=== PATIENT | male | born 1955 | race Caucasian/White ===

== ENCOUNTER → 2020-10-16 09:09 | Outpatient (BNVA) | payer MEDICARE, SELFPAY | PROVIDERS: PCP Internal Medicine; Visit Provider Surgery | DX: K64.8 Other hemorrhoids (principal) | CPT/HCPCS: 46600; 99202 ==

== ENCOUNTER 2020-10-27 07:03 | Day surgery (SDC) | payer MEDICARE, SELFPAY ==
[2020-10-23 11:58] VITALS: BMI 29.0
--- NOTE | 2020-10-23 14:35 | HO.ANESPROP2 ---
Documented by User: Sofia Chang 10/23/20 14:38 HPI - Anesthesia Eval Consult details Narrative: 64yo M for EUA, Hemorrhoidectomy PMFSH Active Problems Active Problems: All Active Problems (Updated 10/23/20 @ 12:34 by Aleisha Khoury) Internal and external prolapsed hemorrhoids (Acute) Anxiety (Acute) Past Medical History Medical History Anxiety Depression Hx of aortic aneurysm Internal and external prolapsed hemorrhoids Surgical History Surgical History H/O colonoscopy Hx of hemorrhoidectomy Social History Social History Smoking Status: Former smoker Use of substances other than those prescribed or required for medical reasons: No Have you been hit, kicked, punched, or otherwise hurt by someone within the past year? If so, by whom?: No Advance Directives Information Provided: No Meds Allergies Allergy/AdvReac Type Severity Reaction Status Date / Time Sulfa (Sulfonamide Allergy Mild RASH Verified 10/16/20 09:17 Antibiotics) [SULFA (SULFONAMIDE ANTIBIOTICS)] Home Medications Medication Instructions Recorded Confirmed Last Taken Type clonazepam 0.5 mg tablet 0.25 mg PO TID 10/16/20 10/23/20 Unknown History divalproex 250 mg tablet,extended 750 mg PO BEDTIME 10/16/20 10/23/20 Unknown History release 24 hr polyethylene glycol 3350 17 gram 17 g PO DAILY 10/16/20 10/23/20 Unknown History oral powder packet Exam Exam Date and Time: October 23, 2020 1435 Height,Weight and Vital Signs: Height 5 ft 7 in Weight 83.915 kg Narrative Narrative: Chest CT 03/2020 Unchanged mild dilation of the ascending thoracic aorta measuring up to 4.3cm ECHO 03/2020 LV mildly dilated; LV wall thickness is normal; LV systolic function is mildly reduced LVEF 50-55% Mild global hypokinesis of LV No obvious WMA Gr 1 DD with impaired LV relaxation Aortic valve is trileaflet AV appears normal Mild AR No Dilation of aortic root (4.2cm) and ascending aorta (4.1cm) Assessment and Plan Assessment Anesthesia Assessment: Chart Reviewed Documented by User: Iliana Mike 10/27/20 08:25 PMFSH Past Medical History Medical History Anxiety Depression Hx of aortic aneurysm Internal and external prolapsed hemorrhoids Family History Family history of problems with anesthesia: No Surgical History Surgical History H/O colonoscopy Hx of hemorrhoidectomy History of Problems with Anesthesia: No Social History Social History Smoking Status: Former smoker Use of substances other than those prescribed or required for medical reasons: No Have you been hit, kicked, punched, or otherwise hurt by someone within the past year? If so, by whom?: No Advance Directives Information Provided: No Meds Allergies Allergy/AdvReac Type Severity Reaction Status Date / Time Sulfa (Sulfonamide Allergy Mild RASH Verified 10/16/20 09:17 Antibiotics) [SULFA (SULFONAMIDE ANTIBIOTICS)] Home Medications Medication Instructions Recorded Confirmed Last Taken Type clonazepam 0.5 mg tablet 0.25 mg PO TID 10/16/20 10/23/20 Unknown History divalproex 250 mg tablet,extended 750 mg PO BEDTIME 10/16/20 10/23/20 Unknown History release 24 hr polyethylene glycol 3350 17 gram 17 g PO DAILY 10/16/20 10/23/20 Unknown History oral powder packet Exam Height,Weight and Vital Signs: Vital Signs Temp Pulse Resp BP Pulse Ox 10/27/20 08:02 96.1 F L 51 18 118/61 99 Repeat Temp: 98.3 Airway Mallampati Class: II TM Dist: >3cm Neck ROM: Full Loose/Missing/Broken Teeth: No Heart: RRR Lungs: CTAB Assessment and Plan Assessment Anesthesia Assessment: Anesthesia Plan Discussed and Chart Reviewed Final Anesthetic Review NPO: Yes ASA Class: III Final Preanesthetic Review: No Changes in Pt Med Stat, Meds/Allgs Chart Reviewed, Consent Obtained/Reviewed and Anes Risks/Benef Reviewed Patient Risk: Intermediate Procedure Risk: Low Assessment/Block/Sedation in SS: Assess/Block/Sedation-SS Anesthetic Plan Anesthetic Plan: GA and MAC: Disposition: Standard PACU
[2020-10-27] VITALS (12 sets, daily range): BP systolic 118–143; BP diastolic 61–79; PULSE 50–58; RESP 12–18; TEMP 35.6–36.2; O2SAT 93–100
--- NOTE | 2020-10-27 07:51 | MHC.SHP ---
Pre-Procedural Eval Section B Chief Complaint: Internal and external prolapsed hemorrhoids Allergies: Allergies Allergy/AdvReac Type Severity Reaction Status Date / Time Sulfa (Sulfonamide Allergy Mild RASH Verified 10/16/20 09:17 Antibiotics) [SULFA (SULFONAMIDE ANTIBIOTICS)] Plan I have reviewed the history and physical and performed a pertinent physical examination on my patient. No changes have occurred unless specified.
[2020-10-27] MEDS: Lactated Ringers 1,000 ML 100 ML IVCONT (08:13)
--- NOTE | 2020-10-27 08:27 | PC.NURSE ---
TEMPERATURE RECHECK 98.3
--- NOTE | 2020-10-27 09:56 | W.PM.OPN ---
Operative Note Operative Note Date of Service: 10/27/20 Narrative: Preop diagnosis: Internal and external hemorrhoids with pain Postop diagnosis: As above Procedure: Exam under anesthesia, hemorrhoidectomy x2 columns Surgeon: Mac Xiong MD The patient is a 64-year-old male who was had chronic problems of pain and discomfort with his hemorrhoids. He was seen in the office and was noted to have internal and external hemorrhoidal columns on the left and right side. He wanted proceed with hemorrhoidectomy. He understood the technique of the procedure. He was aware of the risks, benefits, and alternatives. He was brought to the operating room and placed in prone shayna-knife position under general anesthesia via endotracheal tube. The buttocks were retracted with wide tape laterally. The perianal area was prepped and draped in the usual sterile fashion. A surgical time-out was done. The patient received Cefotan 2 g IV preoperatively. Examination of the anal orifice revealed a moderate sized external hemorrhoidal column on the left side, and a smaller column on the right. I inserted the Rosey Mccloud retractor into the anal canal and examined the anal canal circumferentially. Again these hemorrhoidal columns were seen and were noted to be of internal and external hemorrhoidal columns. I grasped the hemorrhoidal column on the left side with a Golden grasper and pulled this out into the field. I applied a figure of 8 stitch at the pedicle using chromic 3-0. I made an incision around this hemorrhoid column to the perianal skin using a blade 15. I excised this hemorrhoidal column aboce the plaine of the sphincters along this incision using scissors down to the pedicle. I closed the incision using arunning chromic 3-0 stitch. I proceeded to repeat this procedure on the hemorrhoidal column on the right side. Again this hemorrhoid was grasped with a Golden grasper. I made a [id number] stitch at the pedicle using chromic 3-0.I made an incision on this hemorrhoid column to the perianal skin. I excised this hemorrhoidal column above the plane of the sphincters using scissors. I closed this hemorrhoidal column with a running chromic 3-0 stitch. We observed for hemostasis. Once hemostasis was ensured I proceeded to infiltrate the perianal area generously with Marcaine 0.5% for postop analgesia. The procedure was then completed. The patient tolerated the procedure well. There were no complications noted. Initial and final counts of sponges and isntruments were correct. Estimated blood loss was about 20 cc. The patient was extubated without difficulty and transferred to the recovery room with stable vital signs.
--- NOTE | 2020-10-27 10:00 | PM.OP ---
Brief Operative Note Date of Service: 10/27/20 Pre-op diagnosis: Internal and external hemorrhoid columns Post-op diagnosis: same Procedure: Exam under anesthesia, hemorrhoidectomy Surgeon: Mac Xiong MD Anesthesia: GETOralia Estimated blood loss (mL): 20 Pathology: other (Hemorrhoids) Condition: stable Disposition: PACU
[2020-10-27] MEDS: Ketorolac Tromethamine 15 MG/ML VIAL IVPUSH (10:13)
[2020-10-27] MEDS: oxyCODONE HCl Immed Release 5 MG TABLET 10 MG PO (10:18)
[2020-10-27] MEDS: Acetaminophen 325 MG TABLET 650 MG PO (10:18)
[2020-10-27] MEDS: fentaNYL citrate/PF 100 MCG/2 ML VIAL 25 MCG IVPUSH ×4 (10:18→10:33)
== END 2020-10-27 11:48 | disposition home or self-care (01) ==
PROVIDERS: PCP Internal Medicine; Visit Provider Surgery
PROC: (CPT 46260; principal; 2020-10-27 08:50)
DX: K64.8 Other hemorrhoids (principal); K64.4 Residual hemorrhoidal skin tags; F32.9 Major depressive disorder, single episode, unspecified; Z86.79 Personal history of other diseases of the circulatory system; Z79.899 Other long term (current) drug therapy; Z88.2 Allergy status to sulfonamides; Z87.891 Personal history of nicotine dependence
CPT/HCPCS: 46260; 88304; J1100; J1170; J1885; J2250; J2405; J3010

== ENCOUNTER → 2020-11-09 08:45 | Outpatient (BNVA) | payer MEDICARE, SELFPAY | PROVIDERS: PCP Internal Medicine; Visit Provider Surgery | DX: Z48.815 Encounter for surgical aftercare following surgery on the digestive system (principal); Z87.19 Personal history of other diseases of the digestive system | CPT/HCPCS: 99212 ==

== ENCOUNTER → 2020-12-13 09:32 | Outpatient (BNVA) | payer MEDICARE, SELFPAY | PROVIDERS: PCP Internal Medicine; Visit Provider Surgery | DX: K64.8 Other hemorrhoids (principal) | CPT/HCPCS: 46600; 99212 ==

== ENCOUNTER 2021-01-11 14:39 | Emergency (ER) | payer MEDICARE, SELFPAY ==
--- NOTE | ~2021-01-11 | CT_ITS ---
EXAMINATION: CT HEAD WITHOUT CONTRAST CLINICAL INFORMATION: Head injury. Rule out bleed COMPARISON: None TECHNIQUE: Contiguous axial imaging was performed from the skull base to vertex without intravenous administration of contrast. This CT examination was performed using dose optimization techniques as appropriate, variously including the following: *Automated exposure control *Adjustment of mA and/or kV according to patient size (this includes techniques or standardized protocols for targeted exams where dose is matched to indication/reason for exam; i.e. extremities or head) *Use of iterative reconstruction technique DLP: 826 mGy-cm FINDINGS: There is no evidence of acute intracranial hemorrhage or territorial infarction. No abnormal mass effect or midline shift is seen. Saleh to white matter differentiation is well preserved. No extra-axial fluid collections are identified. The ventricles are normal in size. There is no abnormal attenuation within the brain parenchyma. The osseous structures and soft tissues are normal. The mastoid air cells and visualized portions of the paranasal sinuses are well aerated. CT/CT head/brain wo con IMPRESSION: No acute intracranial pathology.
--- NOTE | ~2021-01-11 | CT_ITS ---
EXAMINATION: CT FACIAL BONES WITHOUT CONTRAST CLINICAL INFORMATION: Left mandible injury. Rule out fracture. COMPARISON: None TECHNIQUE: Facial bone series without IV contrast with coronal and sagittal reconstruction. This CT examination was performed using dose optimization techniques as appropriate, variously including the following: *Automated exposure control *Adjustment of mA and/or kV according to patient size (this includes techniques or standardized protocols for targeted exams where dose is matched to indication/reason for exam; i.e. extremities or head) *Use of iterative reconstruction technique DLP: 359 mGy-cm FINDINGS: There is no acute maxillofacial fracture. The pterygoid plates are intact. The zygomatic arches are intact. The lamina papyracea are intact. The orbital rims are intact. The paranasal sinuses are well-aerated. No air-fluid levels are seen. There is mild mucosal thickening seen within the right frontal sinus, ethmoid sinuses, and right maxillary sinus. There is proximal right-sided distal left-sided deviation of calcified nasal septum. There is evidence of old nasal bone fracture The ostiomeatal complexes are clear. There is a boggy left inferior nasal turbinate. The lamina papyracea are intact. The ethmoid roofs are symmetric. The carotid canals are normally covered by bone. No maxillary periapical disease is seen. The mastoid air cells and visualized middle ear cavities are well-aerated. The orbits are normal. The TMJs are unremarkable. The imaged portions of the brain demonstrate no acute abnormality. CT/CT facial bones wo con IMPRESSION: No acute intracranial process or discrete facial bone fracture.
[2021-01-11 14:43] VITALS: BP 112/73; PULSE 71; RESP 18; TEMP 37; O2SAT 95; BMI 29.0
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
== END 2021-01-11 17:15 | disposition home or self-care (01) ==
PROVIDERS: Emergency Provider Emergency Medicine; PCP Internal Medicine
DX: S00.93XA Contusion of unspecified part of head, initial encounter (principal); S00.83XA Contusion of other part of head, initial encounter; G44.309 Post-traumatic headache, unspecified, not intractable; R42 Dizziness and giddiness; Y29.XXXA Contact with blunt object, undetermined intent, initial encounter; Y93.9 Activity, unspecified; Y92.9 Unspecified place or not applicable; Y99.9 Unspecified external cause status; Z79.899 Other long term (current) drug therapy
CPT/HCPCS: 70450; 70486; 99283

== ENCOUNTER 2022-05-31 09:40 | Outpatient (REF) | payer MEDICARE, SELFPAY ==
--- NOTE | ~2022-05-31 | FL_ITS ---
EXAMINATION: FL BARIUM SWALLOW CLINICAL INFORMATION: Solid food stuck in throat acid reflux. Dysphagia. COMPARISON: None TECHNIQUE: Barium swallow examination is performed using fluoroscopic evaluation in addition to multiple fluoroscopic spot views. The patient is imaged both upright and prone and using both thick and thin sulfate along with effervescent granules. Barium tablet was also administered. Fluoroscopy time: 0.9 minutes DAP: 4 Gycm2 Images: 43 FINDINGS: The swallowing mechanism is normal. No aspiration penetration or retention is seen. There is gastroesophageal reflux. The esophagus is otherwise normal. No evidence of esophagitis, mass, stricture, or hernia is seen. Tablet passed freely into the stomach. FL/FL barium swallow IMPRESSION: Gastroesophageal reflux.
== END 2022-05-31 09:41 | disposition home or self-care (01) ==
LOC: HO.XRAY 09:40
PROVIDERS: PCP Internal Medicine; Visit Provider Internal Medicine Gastroenterology
DX: R13.10 Dysphagia, unspecified (principal)
CPT/HCPCS: 74220

== ENCOUNTER 2022-06-05 12:50 | Day surgery (SDC) | payer MEDICARE, SELFPAY ==
[2022-06-05 07:18] VITALS: BMI 30.2
[2022-06-05 13:07] VITALS: BP 153/84; PULSE 74; RESP 18; TEMP 36.1; O2SAT 97
[2022-06-05] MEDS: Lactated Ringers 1,000 ML 50 ML IVCONT (13:26)
--- NOTE | 2022-06-05 14:00 | HO.ANESPROP2 ---
[facility] Active Problems Active Problems: All Active Problems (Updated 01/12/21 @ 00:01 by Ondina Moyer) Internal and external prolapsed hemorrhoids (Acute) Anxiety (Acute) Past Medical History Medical History Anxiety Depression Hx of aortic aneurysm Internal and external prolapsed hemorrhoids Family History Family history of problems with anesthesia: No Surgical History Surgical History H/O colonoscopy Hx of hemorrhoidectomy History of Problems with Anesthesia: No Social History Social History Patient Tobacco Use Status: Never used Tobacco Are you DNR?: No Advance Directives: No Advance Directives Information Provided: Yes Recently lost weight without trying: No Nutrition Risks: No Nutritional Risk Poor oral hygiene: No Meds Allergies Allergy/AdvReac Type Severity Reaction Status Date / Time Sulfa (Sulfonamide Allergy Mild RASH Verified 01/11/21 14:46 Antibiotics) [SULFA (SULFONAMIDE ANTIBIOTICS)] Active Medications: Current Medications Lactated Ringer's (Lr) 1,000 mls @ 50 mls/hr IVCONT .Q20H TRINY Last Admin: 06/05/22 13:26 Dose: 50 mls/hr Home Medications Medication Instructions Recorded Confirmed Last Taken Type clonazepam 0.5 mg tablet 0.25 mg PO TID 10/16/20 06/05/22 06/05/22 History omeprazole 20 mg capsule,delayed 20 mg PO DAILY 06/05/22 06/05/22 06/05/22 History release Exam Exam Date and Time: June 05, 2022 1400 Height,Weight and Vital Signs: Height 5 ft 7 in Weight 87.543 kg Last Vital Signs Temp 96.9 F 06/05/22 13:07 Pulse 74 06/05/22 13:07 Resp 18 06/05/22 13:07 BP 153/84 H 06/05/22 13:07 Pulse Ox 97 06/05/22 13:07 O2 Del Method 06/05/22 13:07 Airway Mallampati Class: II TM Dist: >3cm Neck ROM: Full Loose/Missing/Broken Teeth: No Heart: RRR Lungs: CTA Assessment and Plan Assessment Anesthesia Assessment: Anesthesia Plan Discussed and Chart Reviewed Final Anesthetic Review Family History of Problems with Anesthesia: No History of Problems with Anesthesia: No NPO: Yes ASA Class: II Final Preanesthetic Review: Meds/Allgs Chart Reviewed, Consent Obtained/Reviewed and Anes Risks/Benef Reviewed Patient Risk: Low Procedure Risk: Low Anesthetic Plan Anesthetic Plan: MAC: Disposition: Standard PACU
--- NOTE | 2022-06-05 15:01 | MHC.SHP ---
Pre-Procedural Eval Section A Date of Service: 06/05/22 The patient is an INPATIENT: No Changes since office visit: No Cold of Flu in the past 2 weeks, No New Medical Problems, No Changes in Medication and No Patient answered all questions The History & Physical has been completed within 30 days and I have reviewed it.: Yes Section B Chief Complaint: Dysphagia, Allergies: Allergies Allergy/AdvReac Type Severity Reaction Status Date / Time Sulfa (Sulfonamide Allergy Mild RASH Verified 01/11/21 14:46 Antibiotics) [SULFA (SULFONAMIDE ANTIBIOTICS)] Plan I have reviewed the history and physical and performed a pertinent physical examination on my patient. No changes have occurred unless specified.
--- NOTE | 2022-06-05 15:02 | PM.OP ---
Brief Operative Note Date of Service: 06/05/22 Pre-op diagnosis: dysphagia Post-op diagnosis: same Procedure: egd Surgeon: Brennan Abdi Anesthesia: MAC Was an Metal Furrer used for this Procedure?: No Estimated blood loss (mL): 2 Pathology: other Condition: stable Disposition: PACU
[2022-06-05 15:05] VITALS: BP 113/73; PULSE 64; RESP 16; TEMP 37.1; O2SAT 100
[2022-06-05 15:20] VITALS: BP 119/80; PULSE 67; RESP 16; O2SAT 97
[2022-06-05 15:34] VITALS: BP 128/89; PULSE 66; RESP 16; TEMP 37; O2SAT 97
--- NOTE | 2022-06-06 01:58 | OP_ITS ---
SURGEON: Brennan Abdi MD INDICATIONS: Dysphagia. PREOPERATIVE DIAGNOSIS: POSTOPERATIVE DIAGNOSIS: PROCEDURE PERFORMED: Upper endoscopy with biopsy on 06/05/22. ESTIMATED BLOOD LOSS: COMPLICATIONS: ANESTHESIA: ASSISTANTS: SPECIMENS: MEDICATIONS: Monitored anesthesia care. DESCRIPTION OF PROCEDURE: History and physical performed. The risks and benefits of the procedure were explained to the patient. Informed consent was obtained. The patient was placed in the left lateral decubitus position. The Olympus video gastroscope was introduced into the esophagus, stomach, and duodenum. Examination was performed. The scope was removed. He tolerated the procedure well and was returned to recovery area in stable condition. FINDINGS: Esophagus: The esophagus was normal. There was some mild ridging which was not particularly prominent. There were few white spots. Biopsies were obtained from the mid esophagus and EG junction. There was no esophagitis. Stomach showed no evidence of masses, ulcers, or polyps. Antral biopsies were obtained to rule out H pylori. Duodenum: The bulb and second portion were normal. IMPRESSION: Dysphagia. RECOMMENDATION: Follow up the biopsy results. MD SINDHU Lou/HEMAL / [id number] MTDD
== END 2022-06-05 15:55 | disposition home or self-care (01) ==
PROVIDERS: PCP Internal Medicine; Visit Provider Internal Medicine Gastroenterology
PROC: 0DJ08ZZ Inspection of Upper Intestinal Tract, Via Natural or Artificial Opening Endoscopic (ICD-10-PCS; CPT 43235; principal; 2022-06-05 14:20)
DX: R13.10 Dysphagia, unspecified (principal); K20.80 Other esophagitis without bleeding; K21.9 Gastro-esophageal reflux disease without esophagitis; F32.A Depression, unspecified; F41.1 Generalized anxiety disorder; Z79.899 Other long term (current) drug therapy; Z88.2 Allergy status to sulfonamides
CPT/HCPCS: 43239; 88305; 88312; 88342

== ENCOUNTER 2022-06-14 16:59 | Outpatient (REF) | payer MEDICARE, SELFPAY ==
[2022-06-17 09:23] LABS: HIV AB/AG Nonreactive (Nonreactive); HIV Num 1 0.09 S/CO (0.00-0.99)
== END 2022-06-14 17:00 | disposition home or self-care (01) ==
LOC: HO.LAB 16:59
PROVIDERS: PCP Internal Medicine; Visit Provider Internal Medicine Gastroenterology
DX: Z11.4 Encounter for screening for human immunodeficiency virus [HIV] (principal); B37.81 Candidal esophagitis
CPT/HCPCS: 36415; 87389

== ENCOUNTER → 2022-08-07 15:26 | Outpatient (BNVA) | payer MEDICARE, SELFPAY | PROVIDERS: PCP Internal Medicine; Visit Provider Surgery | DX: K64.8 Other hemorrhoids (principal); K64.4 Residual hemorrhoidal skin tags | CPT/HCPCS: 46600; 99212 ==

== ENCOUNTER 2022-08-23 06:47 | Day surgery (SDC) | payer MEDICARE, SELFPAY ==
--- NOTE | 2022-08-22 10:38 | HO.ANESPROP2 ---
Documented by User: Sofia Chang NP 08/22/22 11:44 HPI - Anesthesia Eval Consult details Narrative: 66yo M for Colonoscopy s/p EGD with MAC 05/2022 Stable at 05/2022 cardiology office visit and was cleared for knee replacement surgery (follows for minimally dilated ascending aortic aneurysm which has remained stable at 4.0-4.1 since 2018) PMFSH Active Problems Active Problems: All Active Problems (Updated 08/07/22 @ 16:07 by Mac Xiong MD) Hemorrhoids without complication (Acute) Internal and external prolapsed hemorrhoids (Acute) Anxiety (Acute) Past Medical History Medical History (Updated 08/23/22 @ 07:41 by Loan Martinez, RN) Anxiety Depression Hemorrhoids without complication Hx of aortic aneurysm Hx of esophageal reflux Internal and external prolapsed hemorrhoids Family History Family history of problems with anesthesia: No Surgical History Surgical History (Updated 08/23/22 @ 07:37 by Loan Martinez, RN) H/O colonoscopy History of bunionectomy of both great toes History of tonsillectomy and adenoidectomy Hx of Achilles tendon repair Hx of arthroscopy of left knee Hx of esophagogastroduodenoscopy Hx of hemorrhoidectomy History of Problems with Anesthesia: No Social History Social History Patient Tobacco Use Status: Never used Tobacco Use of substances other than those prescribed or required for medical reasons: No Are you DNR?: No Advance Directives: No Advance Directives Information Provided: Yes Meds Allergies Allergy/AdvReac Type Severity Reaction Status Date / Time Sulfa (Sulfonamide Allergy Mild RASH Verified 08/23/22 07:39 Antibiotics) [SULFA (SULFONAMIDE ANTIBIOTICS)] ciprofloxacin [From Cipro] Allergy Unknown Verified 08/23/22 07:39 Home Medications Medication Instructions Recorded Confirmed Last Taken Type clonazepam 0.5 mg tablet 0.25 mg PO TID 10/16/20 08/07/22 06/05/22 History omeprazole 20 mg capsule,delayed 20 mg PO DAILY 06/05/22 08/07/22 06/05/22 History release quetiapine 25 mg tablet mg PO 08/23/22 08/23/22 Unknown History Exam Exam Date and Time: August 22, 2022 1038 Narrative Narrative: ?Chest CT 03/2020 Unchanged mild dilation of the ascending thoracic aorta measuring up to 4.3cm ECHO 03/2020 LV mildly dilated; LV wall thickness is normal; LV systolic function is mildly reduced LVEF 50-55% Mild global hypokinesis of LV No obvious WMA Gr 1 DD with impaired LV relaxation Aortic valve is trileaflet AV appears normal Mild AR No Dilation of aortic root (4.2cm) and ascending aorta (4.1cm) Assessment and Plan Assessment Anesthesia Assessment: Chart Reviewed Final Anesthetic Review Family History of Problems with Anesthesia: No History of Problems with Anesthesia: No Documented by User: Nba Michelle MD 08/23/22 07:41 PMFSH Past Medical History Medical History (Updated 08/23/22 @ 07:41 by Loan Martinez RN) Anxiety Depression Hemorrhoids without complication Hx of aortic aneurysm Hx of esophageal reflux Internal and external prolapsed hemorrhoids Surgical History Surgical History (Updated 08/23/22 @ 07:37 by oLan Martinez RN) H/O colonoscopy History of bunionectomy of both great toes History of tonsillectomy and adenoidectomy Hx of Achilles tendon repair Hx of arthroscopy of left knee Hx of esophagogastroduodenoscopy Hx of hemorrhoidectomy Social History Social History Patient Tobacco Use Status: Never used Tobacco Use of substances other than those prescribed or required for medical reasons: No Are you DNR?: No Advance Directives: No Advance Directives Information Provided: Yes Meds Allergies Allergy/AdvReac Type Severity Reaction Status Date / Time Sulfa (Sulfonamide Allergy Mild RASH Verified 08/23/22 07:39 Antibiotics) [SULFA (SULFONAMIDE ANTIBIOTICS)] ciprofloxacin [From Cipro] Allergy Unknown Verified 08/23/22 07:39 Home Medications Medication Instructions Recorded Confirmed Last Taken Type clonazepam 0.5 mg tablet 0.25 mg PO TID 10/16/20 08/07/22 06/05/22 History omeprazole 20 mg capsule,delayed 20 mg PO DAILY 06/05/22 08/07/22 06/05/22 History release quetiapine 25 mg tablet mg PO 08/23/22 08/23/22 Unknown History Exam Height,Weight and Vital Signs: 155/90;63;99% Airway Mallampati Class: III TM Dist: >3cm Neck ROM: Full Heart: rrr Lungs: cta Assessment and Plan Final Anesthetic Review ASA Class: III Final Preanesthetic Review: No Changes in Pt Med Stat, Meds/Allgs Chart Reviewed, Consent Obtained/Reviewed and Anes Risks/Benef Reviewed Procedure Risk: Intermediate Anesthetic Plan Anesthetic Plan: MAC: Disposition: Standard PACU
[2022-08-23 07:14] VITALS: BMI 28.1
[2022-08-23 07:34] VITALS: BP 155/90; PULSE 65; RESP 16; TEMP 36.6; O2SAT 98
[2022-08-23] MEDS: Lactated Ringers 1,000 ML 100 ML IVCONT (07:37)
--- NOTE | 2022-08-23 07:44 | MHC.SHP ---
Pre-Procedural Eval Section A Date of Service: 08/23/22 Section B Chief Complaint: screening Details of Present Illness: see H&P no changes Relevant Family History (Specify if Yes): No Relevant Social History: None Present Medications: see Short Stay Collaborative assessment Medical History: No relevant PMH Allergies: Allergies Allergy/AdvReac Type Severity Reaction Status Date / Time Sulfa (Sulfonamide Allergy Mild RASH Verified 08/23/22 07:39 Antibiotics) [SULFA (SULFONAMIDE ANTIBIOTICS)] ciprofloxacin [From Cipro] Allergy Unknown Verified 08/23/22 07:39 Review of Systems Sugical H&P ROS: Negative: Constitution, Cardiovascular, Respiratory, Neurological, Psychiatric, Hem-Onc, Allergic/Immunologic, Gastrointestinal, Genitourinary, Musculoskeletal, Integumentary, Endocrine and Eyes/Ears/Nose/Throat Exam Surgical H&P Exam: Normal: HEENT, Normal: Heart, Normal: Lungs, Normal: Extremities, Normal: Abdomen, Normal: Skin and Normal: Neurological Plan Diagnosis/Plan: Unchanged I have reviewed the history and physical and performed a pertinent physical examination on my patient. No changes have occurred unless specified. Time Spent With Patient Time: Total time managing care of this patient today ____ minutes.
--- NOTE | 2022-08-23 08:17 | PM.OP ---
Brief Operative Note Date of Service: 08/23/22 Pre-op diagnosis: screening Post-op diagnosis: same Procedure: colonoscopy Surgeon: Brennan Abdi Anesthesia: MAC Was an Computational Chemist used for this Procedure?: No Estimated blood loss (mL): 2 Pathology: other Condition: stable Disposition: PACU
[2022-08-23 08:20] VITALS: BP 105/73; PULSE 59; RESP 16; TEMP 36.9; O2SAT 98
[2022-08-23 08:35] VITALS: BP 106/76; PULSE 55; RESP 16; TEMP 36.3; O2SAT 97
--- NOTE | 2022-08-23 08:55 | OP_ITS ---
SURGEON: Brennan Abdi MD INDICATIONS: Colon cancer screening and prior history of adenomatous colon polyps. PREOPERATIVE DIAGNOSIS: POSTOPERATIVE DIAGNOSIS: PROCEDURE PERFORMED: Colonoscopy to the terminal ileum with biopsy. ESTIMATED BLOOD LOSS: COMPLICATIONS: ANESTHESIA: Monitored anesthesia care. ASSISTANTS: SPECIMENS: DESCRIPTION: Date: 08/23/22. A history and physical performed. The risks and benefits of the procedure were explained to the patient. Informed consent was obtained. The patient was placed in left lateral decubitus position. A digital rectal exam was performed and was found to be normal. The Olympus pediatric video colonoscope was introduced into the rectum and advanced to the cecum without difficulty. The cecum was identified by transillumination, palpation, and identification of ileocecal valve examination was performed. The scope was removed. He tolerated the procedure well and was taken to recovery area in stable condition. FINDINGS: The terminal ileum was examined and appeared normal. The visualized colonic mucosa was normal. The quality of the prep was good. A single polyp measuring less than 5 mm was identified in the right colon at 80 cm. This was removed with biopsy forceps. No other polyps were identified. There was mild sigmoid diverticulosis. Retroflexed examination showed small internal hemorrhoids. IMPRESSION: Colon polyp. RECOMMENDATION: Follow up the biopsy results. MD SINDHU Lou/HEMAL / [id number] MTDD
== END 2022-08-23 09:10 | disposition home or self-care (01) ==
PROVIDERS: PCP Internal Medicine; Visit Provider Internal Medicine Gastroenterology
PROC: 0DJD8ZZ Inspection of Lower Intestinal Tract, Via Natural or Artificial Opening Endoscopic (ICD-10-PCS; CPT 45378; principal; 2022-08-23 08:10)
DX: Z12.11 Encounter for screening for malignant neoplasm of colon (principal); Z86.010 Personal history of colon polyps; D12.4 Benign neoplasm of descending colon; K57.30 Diverticulosis of large intestine without perforation or abscess without bleeding; K64.8 Other hemorrhoids; K59.09 Other constipation; R13.19 Other dysphagia; K21.9 Gastro-esophageal reflux disease without esophagitis; I71.20 Thoracic aortic aneurysm, without rupture, unspecified; F41.8 Other specified anxiety disorders; Z88.1 Allergy status to other antibiotic agents; Z88.2 Allergy status to sulfonamides; Z98.890 Other specified postprocedural states; Z79.899 Other long term (current) drug therapy
CPT/HCPCS: 45380; 88305